=== PATIENT | female | born 1970 | race Caucasian/White ===

== ENCOUNTER 2021-05-08 03:51 | Emergency (ER) | payer OTHER, SELFPAY ==
[2021-05-08 04:55] VITALS: BP 143/78; PULSE 106; RESP 14; TEMP 36.9; O2SAT 98; BMI 27.1
--- NOTE | 2021-05-08 07:04 | ED.BACK ---
HPI - Back Pain/Injury General Chief Complaint: Back Pain/Injury Stated Complaint: left side back pain Time Seen by Provider: 05/08/21 07:04 Source: patient Limitations: no limitations History of Present Illness HPI Narrative: 50-year-old female nonsmoker with noncontributory medical history presents with a chief complaint of severe spasm type pain in her left flank. She states she started having pain on Monday that is made worse by motion and improves with rest. She denies any radiation the pain is states it is sharp and stabbing in nature. She states that there is some level of pain at baseline but certainly worsens with motion. She actually got a bit better for a few days during mid week and was able to be quite active but then it started up again 24 hours ago. She states that she does not remember any traumatic or memorable painful injury but did start a new type of abdominal exercise. She denies any nausea, vomiting or diarrhea. She denies any urinary complaints such as dysuria, frequency or urgency. She denies any change in bowel habits Related Data Allergies Allergy/AdvReac Type Severity Reaction Status Date / Time Penicillins [PENICILLINS] Allergy Mild rash/fever Verified 05/08/21 05:05 asprin Allergy Severe tachycardia Uncoded 01/17/18 12:37 /syncope Review of Systems Review of Systems Narrative: GENERAL: Denies chills, fatigue, malaise, fever, sweats. HEENT: Denies sinus pain, ear pain, sore throat, difficulty swallowing, dizziness. RESPIRATORY: Denies dyspnea, cough, wheezing, hemoptysis, sputum. CARDIOVASCULAR: Denies chest pain, palpitations, orthopnea, edema, GASTROINTESTINAL: Denies nausea, vomiting, abdominal pain, diarrhea, constipation, melena. : Denies dysuria, frequency, incontinence, hematuria, urinary retention. MUSCULOSKELETAL: See HPI SKIN: Denies rash, skin lesions, or other NEUROLOGIC: Denies weakness, headache, numbness, change in speech, confusion, seizures, incoordination. PSYCHIATRIC: No concerning psychosocial issues. 12 point review of systems is negative except for those stated above Patient History Social History Smoking Status: Unknown if ever smoked Smoking Status: Unknown if ever smoked alcohol intake frequency: 0-2 drinks per day Substance Use Type: does not use Exam Narrative Exam Narrative: GEN: AOx3 and in mild distress EYES: Pupils are equal, round, and reactive to light and accommodation. Extraoccular muscles are intact bilaterally. There is no subconjunctival hemorrhage or exudate. CHEST: Lungs are clear to auscultation bilaterally and free of wheezes, rales, or rhonchi. Heart rate is regular rhythm, there are no murmurs, clicks, rubs, or gallops. There is no chest wall tenderness. ABD: Abdomen is soft and nontender. There is no guarding or rebound. Bowel sounds are normal in all 4 quadrants. There is no mass or organomegaly. BACK: web press roll tender but free of any obvious external abnormalities. Patient exam notes decreased range of motion and muscle spasm, but no CVA tenderness, or vertebral point tenderness. There are no symptoms of cauda equina such as saddle anesthesia, and decreased reflexes, decreased sensation or strength. EXT: Full painless ROM of all extremities with no loss of sensation or strength. SKIN: Warm, pink, and dry. No erythema or rash Initial Vital Signs Initial Vital Signs: Vital Signs Temperature 98.4 F 05/08/21 04:55 Pulse Rate 106 H 05/08/21 04:55 Respiratory Rate 14 05/08/21 04:55 Blood Pressure 143/78 H 05/08/21 04:55 Pulse Oximetry 98 05/08/21 04:55 Course Vital Signs Vital signs: Vital Signs - 8 hr 05/08/21 04:55 Temperature 98.4 F Pulse Rate 106 H Respiratory Rate 14 Blood Pressure 143/78 H Pulse Oximetry 98 MDM - Back Pain/Injury MDM Narrative Medical decision making narrative: Patient has no urinary complaints, no evidence of blood or infection in urine. Her pain is worse with movement and improves with rest. It is reproducible. She takes no blood thinners and has no fever. Multiple etiologies of back pain considered including; Epidural abscess, cauda equina, mass occupying lesion, and other considered, however no red flag findings suggestive of neurosurgical emergency are present. Her story and exam as well as limited diagnostics are most consistent with a musculoskeletal injury. Return precautions given and questions answered to her apparent satisfaction
[2021-05-08] MEDS: CYCLOBENZAPRINE 10 MG PREPACK 1 BOTTLE MISC (07:36)
[2021-05-08] MEDS: KETOROLAC 30 MG/ML VIAL IM (07:36)
[2021-05-08] MEDS: LIDOCAINE PATCH 1 EACH ADH..PATCH TOP (07:36)
[2021-05-08 07:42] VITALS: BP 138/74; PULSE 84; RESP 16; O2SAT 100
== END 2021-05-08 08:06 | disposition home or self-care (01) ==
PROVIDERS: Emergency Provider Emergency Medicine
DX: M54.9 Dorsalgia, unspecified (principal)
CPT/HCPCS: 81003; 96372; 99283; J1885